=== PATIENT | female | born 1975 | race Caucasian/White ===

== ENCOUNTER 2016-11-23 21:49 | Inpatient (IN) ==
[2016-11-23] MEDS ORDERED: ONDANSETRON 4 MG/2 ML VIAL IV STA (23:22)
[2016-11-23] MEDS ORDERED: HYDROmorphone 2 MG/1 ML VIAL IV STA (23:22)
[2016-11-23] MEDS ORDERED: SODIUM CHLORIDE 0.9% 1,000 ML IV STA (23:22)
[2016-11-24] MEDS ORDERED: HYDROmorphone 2 MG/1 ML VIAL IM STA
[2016-11-24] MEDS ORDERED: PROMETHAZINE 25 MG/1 ML VIAL ONE (00:01)
[2016-11-24] MEDS ORDERED: PROMETHAZINE 25 MG/1 ML VIAL IM STA (00:01)
[2016-11-24] MEDS ORDERED: HYDROmorphone 2 MG/1 ML VIAL ONE ×2 (00:02→00:47)
--- NOTE | 2016-11-24 00:17 | Emergency Department Note ---
I, Susan Ulloa, am scribing for, and in the presence of, Kim Perez DO 23: 45. IChris Debra, DO, personally performed the services described in this documentation, ascribed by Susan Ulloa in my presence, and it is both accurate and complete . Arrival - Arrival Chief Complaint: Abdominal / Flank Pain Stated Complaint: POST OP BLEEDNIG/BACK PAIN ED Nursing Triage Note: pt presented to triage via w/ with c/o abd/back pain with n/v and vaginal bleeding. pt states had gastric sleeve 10[place]/16 [place] [facility]. pt called her surgeon and was refered to closest ER. healed abd incisions x 6 noted with no s/s of infection. denies fever Mode of Arrival: Wheelchair Limitations: No Limitations Source: Patient Time Seen by Provider: 11/23/16 23:20 - History of Present Illness HPI Narrative: Pt is a 41 y/o female that came to the ED with c/o N/V, right abdomen/back pain , and vaginal bleeding that has been going on since her gastric sleeve on October 31, 2016. Pt states she had her surgery in [place], [place] and went back Thursday November 17, 2016 for sxs where she was treated with a upper GI scope and given 2 bolus of fluid for dehydration. She reports she called her surgeon about sxs and surgeon told her to come to the closest ED. Pt states she is unable to keep an liquid or food down. Pt also reports vaginal bleeding began today and she has a foul odor when she uses the bathroom. No other complaints/ pain in ED. Onset (ago): day(s) Consistency: constant Severity: mild Severity scale (1-10): 2 Quality: aching, sharp Date of Last Menstrual Period: hyst Allergies/Adverse Reactions: Allergies Allergy/AdvReac Type Severity Reaction Status Date / Time adhesive tape Allergy RASH Verified 05/16/16 10:02 aloe Allergy RASH Verified 05/16/16 10:02 bee venom (honey bee) Allergy ANAPHYLAXIS Verified 05/16/16 10:02 cephalexin [From Keflex] Allergy Nausea Verified 05/16/16 10:02 doxycycline Allergy Nausea Verified 05/16/16 10:02 Hexachlorophene Allergy RASH Verified 05/16/16 10:02 [From Phisohex] hornet venom Allergy ANAPHYLAXIS Verified 05/16/16 10:02 Wasp Venom Allergy ANAPHYLAXIS Verified 05/16/16 10:02 Review of System - Review of System 12 point system: reviewed and no additional remarkable complaints except as stated - Review of System Respiratory: Absent: cough Cardiovascular: Absent: chest pain Gastrointestinal: Present: abdominal pain (abdominal pain at incisions), nausea , vomiting Genitourinary female: Present: other (vaginal bleeding with fowl smell) Musculoskeletal: Present: lower back pain. Absent: arm pain, leg pain, neck pain Skin: Absent: rash Neurological: Absent: headache Psychiatric: Absent: anxiety Medical,Surgical,& Family Hx - Medical History Psychological: History of: Anxiety Disorders HEENT: History of: Ear Problem Endocrine: History of: Thyroid Disorder Rheumatology: History of;: Fibromyalgia Genitourinary: History of: Kidney Stones Gastrointestinal: History of: GERD Musculoskeletal: History of: Back/Neck Problems Reproductive: History of: Endometriosis - Surgical History Abdominal Surgeries: Surgical HX of: Gastric Bypass Surgery (gastric sleeve oct 2016) Reproductive Surgeries: Surgical HX of;: Hysterectomy - Social History Smoking Status: Never smoker Frequency of Alcohol Use: None Type of Drug Use: None Exam Vital Signs: Vital Signs Temperature 97.2 F L 11/23/16 22:04 Pulse Rate 74 11/23/16 22:04 Respiratory Rate 20 11/23/16 22:04 Blood Pressure 123/76 11/23/16 22:04 O2 Sat by Pulse Oximetry 100 11/23/16 22:04 - General General appearance: alert, in no apparent distress, obese (morbidly obese) - Head Head exam: Present: atraumatic, normocephalic - Eye Eye exam: Present: PERRL, EOMI - ENT ENT exam: Present: mucous membranes moist. Absent: mucous membranes dry - Neck Neck exam: Present: full ROM. Absent: tenderness - Chest Chest inspection: Present: symmetric chest wall rise. Absent: tenderness - Respiratory Respiratory exam: Present: normal lung sounds bilaterally. Absent: respiratory distress - Cardiovascular Cardiovascular exam: Present: regular rate, normal rhythm, normal heart sounds - Abdominal Exam Abdominal exam: Present: soft, tenderness (surgery sights tender but no infection and healing) - Extremities Exam Extremities exam: Present: full ROM. Absent: tenderness, pedal edema - Back Exam Back exam: Present: full ROM, tenderness (right flank tenderness) - Neurological Exam Neurological exam: Present: alert, oriented X3, CN II-XII intact. Absent: motor sensory deficit - Psychiatric Psychiatric exam: Present: normal affect, normal mood - Skin Skin exam: Present: warm, dry Course Course Narrative: spoke with Dr Collins who will admit pt to dr Bird Results - Labs CBC & BMP: 11/23/16 23:48 11/23/16 23:48 Lab Results: I have reviewed the patients labs Labs: Laboratory Tests 11/24/16 00:05 Urine Urobilinogen < 2.0 H Laboratory Tests 11/23/16 23:48 MCV 83.7 L Neut % (Auto) 36.5 L Laboratory Tests 11/23/16 23:48 Sodium 147 H Chloride 112 H AST 79 H ALT 140 H Disposition Clinical Impression: Abdominal pain, Ileus Case discussed with: patient, patient's family Condition: Stable Time of Disposition: 02:07
[2016-11-24 00:27] LABS: Apearance,Urine CLOUDY (Clear); Bilirubin,Urine Negative (Negative); Blood, Urine Large mg/dL (Negative); Glucose,Urine (UA) Negative (Negative); Ketones,Urine Negative (Negative); Mucus,Urine Many /LPF (Occasional); Nitrite,Urine Negative (Negative); Protein,Urine 100 MG/DL; RBC,Urine 3933 /HPF (0-4); Squamous Epithelial Cell,Urine Occasional /HPF (0-10); Urine Color Amber (Yellow); Urine Specific Gravity 1.023 (1.001-1.035); Urine Urobilinogen < 2.0 EU/DL (0.2-1.0); WBC,Urine 18 /HPF (0-6)
[2016-11-24] MEDS ORDERED: ONDANSETRON 4 MG/2 ML VIAL ONE (00:46)
[2016-11-24 00:52] LABS: Basophils # 0.1 10*3/uL (0.0-0.2); Basophils % 0.7 % (0.0-0.8); Eosinophils # 0.4 10*3/uL (0.0-0.87); Hematocrit 37.5 VOL% (35.7-47.0); Hemoglobin 12.6 GM/DL (12.0-16.0); Immature Granulocytes % 0.1 %; Immature Granulocytes Absolute 0.01 #; Lymphocytes # 3.4 10*3/uL (1.4-4.0); Lymphocytes % 49.6 % (21.3-54.2); Mean Corpuscular HGB Conc 33.6 GM/DL (32-36); Mean Corpuscular Hemoglobin 28 PG (27-34); Mean Corpuscular Volume 83.7 FL (87-102); Mean Platelet Volume 11.7 FL (9.6-12.0); Monocytes # 0.5 10*3/uL (0.11-0.8); Monocytes % 7.1 % (1.7-12.7); Neutrophils # 2.5 10*3/uL (1.4-7.4); Neutrophils % 36.5 % (38.7-73.9); Platelet Count 162 10*3/uL (130-400); Red Blood Count 4.48 10*6/uL (3.8-5.5); Red Cell Distribution Width 13.2 % (9.3-17.3); White Blood Count 6.9 10*3/uL (4.5-13.71)
[2016-11-24 01:27] LABS: Albumin 3.7 G/DL (3.4-5.0); Bilirubin,Total 0.4 MG/DL (0.2-1.0); Calcium 8.7 MG/DL (8.5-10.1); Osmolality,Calculated 288.4 MOS/KG (273-304); Potassium 3.8 MMOL/L (3.5-5.1); Total Protein 6.6 G/DL (6.4-8.3)
[2016-11-24] MEDS ORDERED: diphenhydrAMINE 50 MG/1 ML VIAL IV STA (02:01)
[2016-11-24] MEDS ORDERED: diphenhydrAMINE 50 MG/1 ML VIAL ONE (02:01)
[2016-11-24] MEDS ORDERED: ACETAMINOPHEN 325 MG TABLET PO PRN (02:07)
--- NOTE | 2016-11-24 02:28 | Hospitalist History & Physical ---
Assessment and Plan (1) Hemorrhagic cystitis Status: Acute Current Visit: Yes (2) Abdominal pain Status: Acute Current Visit: Yes (3) Ileus Status: Acute Assessment and plan: Plan for this patient #1 Admit this patient our service #2 treat her nausea and vomiting #3 continue home meds as appropriate #4 IV hydration #5 repeat labs in the morning #6 check KUB in the morning #7 antibiotics Current Visit: Yes History of Present Illness Chief complaint: abdominal pain nausea and vomiting blood and urine History of present illness: Ms. Viera is a 41 year old female with past medical history significant for chronic pain fibromyalgia bursitis polyarthritis who reports having gastric sleeve surgery last month. Patient says ever since she's had the surgery she gets nauseated with sips of water. She went to see her surgeon about a week ago when she was dehydrated. Says she has some, swallowing evaluation when she did the procedure she had stomach spasms. She said that she was put on Reglan and Carafate and Nexium. Started noticing she is passing blood in her urine today she came up to our hospital for further evaluation. Allergies Allergy/AdvReac Type Severity Reaction Status Date / Time adhesive tape Allergy RASH Verified 05/16/16 10:02 aloe Allergy RASH Verified 05/16/16 10:02 bee venom (honey bee) Allergy ANAPHYLAXIS Verified 05/16/16 10:02 cephalexin [From Keflex] Allergy Nausea Verified 05/16/16 10:02 doxycycline Allergy Nausea Verified 05/16/16 10:02 Hexachlorophene Allergy RASH Verified 05/16/16 10:02 [From Phisohex] hornet venom Allergy ANAPHYLAXIS Verified 05/16/16 10:02 Wasp Venom Allergy ANAPHYLAXIS Verified 05/16/16 10:02 Medical,Surgical,& Family Hx - Medical History Psychological: History of: Anxiety Disorders HEENT: History of: Ear Problem Endocrine: History of: Thyroid Disorder Rheumatology: History of;: Fibromyalgia Genitourinary: History of: Kidney Stones Gastrointestinal: History of: GERD Musculoskeletal: History of: Back/Neck Problems Reproductive: History of: Endometriosis - Surgical History Abdominal Surgeries: Surgical HX of: Gastric Bypass Surgery (gastric sleeve oct 2016) Reproductive Surgeries: Surgical HX of;: Hysterectomy - Family History Family History: Reports;: Family Cancer, Family Diabetes Additional Family History: Endometriosis, thyroid disorders - Social History Smoking Status: Never smoker Frequency of Alcohol Use: None Type of Drug Use: None 12 point system: reviewed and no additional remarkable complaints except as stated Exam - Constitutional Vitals: Period Temp Pulse Resp BP Sys/Plaza Pulse Ox Last 24 Hr 97.2 F 74 20 123/76 100 - General General appearance: alert, in no apparent distress, obese (morbidly obese) - Head Head exam: Present: atraumatic, normocephalic - Eye Eye exam: Present: PERRL, EOMI - ENT ENT exam: Present: mucous membranes moist. Absent: mucous membranes dry - Neck Neck exam: Present: full ROM. Absent: tenderness - Chest Chest inspection: Present: symmetric chest wall rise. Absent: tenderness - Respiratory Respiratory exam: Present: normal lung sounds bilaterally. Absent: respiratory distress - Cardiovascular Cardiovascular exam: Present: regular rate, normal rhythm, normal heart sounds - Abdominal Exam Abdominal exam: Present: soft, tenderness (surgery sights tender but no infection and healing) - Extremities Exam Extremities exam: Present: full ROM. Absent: tenderness, pedal edema - Back Exam Back exam: Present: full ROM, tenderness (right flank tenderness) - Neurological Exam Neurological exam: Present: alert, oriented X3, CN II-XII intact. Absent: motor sensory deficit - Psychiatric Psychiatric exam: Present: normal affect, normal mood - Skin Skin exam: Present: warm, dry Results - Labs CBC & BMP: 11/23/16 23:48 11/23/16 23:48
[2016-11-24] MEDS ORDERED: SODIUM CHLORIDE 0.9% 1,000 ML IV SCH (02:30)
[2016-11-24] MEDS: SODIUM CHLORIDE 0.45% 1,000 ML IV SCH ×3 (03:43→20:59)
[2016-11-24] MEDS: LEVOFLOXACIN INJ 500 MG in PREMIX 1 EACH IV SCH (03:44)
[2016-11-24] MEDS: diphenhydrAMINE 50 MG/1 ML VIAL IV PRN ×3 (04:47→20:54)
[2016-11-24] MEDS: HYDROmorphone 2 MG/1 ML VIAL IV PRN ×4 (04:48→18:29)
--- NOTE | 2016-11-24 06:32 | CT Report ---
CT abdomen pelvis wo con Indication: Abdominal pain. CT ABDOMEN AND PELVIS WITHOUT CONTRAST DLP: 1380 mGy*cm Comparison: None. Technique: Axial noncontrast CT images of the abdomen and pelvis were obtained. Abdomen: Obesity noted. Normal heart size. Bibasilar atelectasis. Postoperative changes prior gastric surgery noted. Cholecystectomy clips. Unenhanced liver, spleen, adrenal glands and kidneys are unremarkable. There is, however, a nonobstructing 4 x 7 mm calculus in the right renal pelvis. No calculi of either ureter present and no hydronephrosis. Small amount of fat stranding appears to be present around the pancreas. Unenhanced pancreas is otherwise unremarkable. No bowel obstruction. Pelvis: Appendix not identified. No right lower quadrant inflammation. Urinary bladder is completely decompressed. Uterus is absent. Rectosigmoid colon is within normal limits. No free fluid, free air or lymphadenopathy. No destructive bone lesions. Impression: 1. Nonobstructing right kidney stone in the renal pelvis. 2. Previous gastric surgery. Cholecystectomy. Presumed hysterectomy. 3. Trace amount of nonspecific fat stranding adjacent to the pancreas may be related to pancreatitis. Clinical correlation necessary. PROCEDURE INTERPRETED AT [facility] DEPARTMENT OF RADIOLOGY Final Report Signed by: Napoleon Araiza M.D.
--- NOTE | 2016-11-24 07:36 | XRay Report ---
XR abdomen 2V Indication: Abdominal pain. Abdomen 3 views: Right upper quadrant surgical clips, surgical clips in the epigastric region and a right groin central line are present. Small bowel is unremarkable and a normal amount of stool and gas is shown the colon. No evidence of free air. Impression: Unremarkable bowel gas pattern. PROCEDURE INTERPRETED AT [facility] DEPARTMENT OF RADIOLOGY Final Report Signed by: Napoleon Araiza M.D.
[2016-11-24] MEDS: ONDANSETRON 4 MG/2 ML VIAL IV PRN ×3 (08:07→18:30)
[2016-11-24] MEDS: PANTOPRAZOLE 40 MG TABLET PO SCH ×3 (08:08→18:34)
[2016-11-24] MEDS: DOCUSATE SODIUM 100 MG CAPSULE PO SCH ×2 (08:09→08:12)
[2016-11-24 10:27] LABS: Basophils % 0.4 % (0.0-0.8); Eosinophils # 0.2 10*3/uL (0.0-0.87); Eosinophils % 4.1 % (0.00-10.9); Hematocrit 36.2 VOL% (35.7-47.0); Hemoglobin 11.8 GM/DL (12.0-16.0); Immature Granulocytes % 0.2 %; Immature Granulocytes Absolute 0.01 #; Lymphocytes # 1.5 10*3/uL (1.4-4.0); Lymphocytes % 27.9 % (21.3-54.2); Mean Corpuscular HGB Conc 32.6 GM/DL (32-36); Mean Corpuscular Hemoglobin 28 PG (27-34); Mean Platelet Volume 11.4 FL (9.6-12.0); Monocytes # 0.4 10*3/uL (0.11-0.8); Monocytes % 7.7 % (1.7-12.7); Neutrophils # 3.2 10*3/uL (1.4-7.4); Neutrophils % 59.7 % (38.7-73.9); Platelet Count 140 10*3/uL (130-400); Red Blood Count 4.26 10*6/uL (3.8-5.5); Red Cell Distribution Width 13.5 % (9.3-17.3); White Blood Count 5.4 10*3/uL (4.5-13.71)
[2016-11-24 10:59] LABS: Calcium 8.5 MG/DL (8.5-10.1); Osmolality,Calculated 289.4 MOS/KG (273-304); Potassium 3.7 MMOL/L (3.5-5.1)
[2016-11-25] MEDS: DOCUSATE SODIUM 100 MG CAPSULE PO SCH ×2 (02:36→09:32)
[2016-11-25] MEDS: HYDROmorphone 2 MG/1 ML VIAL IV PRN ×3 (03:25→13:27)
[2016-11-25] MEDS: ONDANSETRON 4 MG/2 ML VIAL IV PRN ×4 (03:26→18:20)
[2016-11-25] MEDS: SODIUM CHLORIDE 0.45% 1,000 ML IV SCH ×2 (04:22→16:26)
[2016-11-25] MEDS: diphenhydrAMINE 50 MG/1 ML VIAL IV PRN ×2 (05:58→16:23)
[2016-11-25 06:19] LABS: Basophils % 0.7 % (0.0-0.8); Eosinophils # 0.4 10*3/uL (0.0-0.87); Hematocrit 35.3 VOL% (35.7-47.0); Hemoglobin 11.4 GM/DL (12.0-16.0); Immature Granulocytes % 0.2 %; Immature Granulocytes Absolute 0.01 #; Lymphocytes # 2.7 10*3/uL (1.4-4.0); Lymphocytes % 48.8 % (21.3-54.2); Mean Corpuscular HGB Conc 32.3 GM/DL (32-36); Mean Corpuscular Hemoglobin 28 PG (27-34); Mean Corpuscular Volume 86.7 FL (87-102); Mean Platelet Volume 11.8 FL (9.6-12.0); Monocytes # 0.4 10*3/uL (0.11-0.8); Monocytes % 6.9 % (1.7-12.7); Neutrophils # 1.9 10*3/uL (1.4-7.4); Neutrophils % 35.4 % (38.7-73.9); Platelet Count 138 10*3/uL (130-400); Red Blood Count 4.07 10*6/uL (3.8-5.5); Red Cell Distribution Width 13.5 % (9.3-17.3); White Blood Count 5.5 10*3/uL (4.5-13.71)
[2016-11-25 06:46] LABS: Eosinophils 10 % (0-10); Hypochromasia Slight; Lymphocytes 37 % (20-55); Ovalocytes Slight; Platelet Estimate Normal; Segmented Neutrophils 48 % (50-85); Total Cells Counted 100
[2016-11-25 06:55] LABS: Calcium 8.6 MG/DL (8.5-10.1); Osmolality,Calculated 285.6 MOS/KG (273-304); Potassium 3.7 MMOL/L (3.5-5.1)
[2016-11-25] MEDS: LEVOFLOXACIN INJ 500 MG in PREMIX 1 EACH IV SCH (09:09)
[2016-11-25] MEDS: PANTOPRAZOLE 40 MG TABLET PO SCH (09:10)
--- NOTE | 2016-11-25 10:33 | Hospitalist Progress Note ---
Assessment and Plan (1) Nausea & vomiting Status: Acute Assessment and plan: cont zofran PRN pt with poor oral intake will consult GI for assistance Current Visit: Yes (2) Abdominal pain Status: Acute Assessment and plan: abd pain, mostly in epigastrum, CT abd- fat stranding around pancreas, will check amylase, lipase, consult GI Current Visit: Yes (3) Ileus Status: Acute Assessment and plan: BS hypoactive, coppola not passing gas , pt had loose BM yesterday , cont Levaquin IV Current Visit: Yes (4) Hemorrhagic cystitis Status: Acute Assessment and plan: resolved, will repeat UA, HH stable, if cont to have hematuria will consult urology Current Visit: Yes Hospitalist: Subjective Interval history: 41 yo WF s/p gastric surgery on 10/31/16 in [facility] to ER c/o nausea, vomiting and and scamps since surgery. She was seeing by her surgeon 1 week ago and had upper GI that revealed esophageal and gastric spasms according to the pt. She was prescribed reglan, nexium and carafate. He symptoms did not improve so she presented to ER. C/o fever and chills also. She was admitted with dehydration and ileus and started on levoquin IV. CT abd - nonspecific fat stranding attached to the pancreas. Exam - Constitutional Vitals: Period Temp Pulse Resp BP Sys/Plaza Pulse Ox Last 24 Hr 96.4 F-98.4 F 54-75 18-20 101-112/49-81 90-97 General appearance: no acute distress, morbidly obese - Head Head exam: Present: normocephalic, atraumatic - Eye Eye exam: Present: EOMI Pupils: Present: ALONZO - Neck Neck exam: Present: normal inspection - Respiratory Respiratory exam: Present: clear to auscultation bilaterally - Cardiovascular Cardiovascular exam: Present: regular rate and rhythm - GI/Abdominal GI/Abdominal exam: Present: distended, hypoactive bowel sounds, other (tender in epigastrium on palpation ) - Extremities Exam Extremities exam: Present: normal inspection - Neurological Exam Neurological exam: Present: alert, oriented X3 - Psychiatric Psychiatric exam: Present: anxious - Skin Skin exam: Present: normal color, warm Results - Labs CBC & BMP: 11/25/16 05:40 11/25/16 05:40 Quality Measures - Stroke Symptom Onset Unknown: No
[2016-11-25 14:55] LABS: Apearance,Urine CLEAR (Clear); Bacteria,Urine Occasional /HPF (Few); Bilirubin,Urine Negative (Negative); Blood, Urine Moderate mg/dL (Negative); Glucose,Urine (UA) Negative (Negative); Ketones,Urine Negative (Negative); Mucus,Urine Occasional /LPF (Occasional); Nitrite,Urine Negative (Negative); Protein,Urine Negative; RBC,Urine 7 /HPF (0-4); Squamous Epithelial Cell,Urine Occasional /HPF (0-10); Urine Color Straw (Yellow); Urine Specific Gravity 1.005 (1.001-1.035); Urine Urobilinogen < 2.0 EU/DL (0.2-1.0); WBC,Urine <1 /HPF (0-6)
[2016-11-25] MEDS ORDERED: ACETAMINOPHEN 650 MG SUPP RECTAL PRN (16:30)
[2016-11-25] MEDS ORDERED: LORazepam 2 MG/1 ML VIAL IV PRN (16:36)
[2016-11-25] MEDS ORDERED: PROMETHAZINE INJ 25 MG in SODIUM CHLORIDE 0.9% 50 ML IV PRN (16:39)
--- NOTE | 2016-11-25 16:48 | Gastrointestinal Consult Note ---
Assessment and Plan (1) GI complications of surgery Status: Acute Assessment and plan: I suspect someone strongly that this patient has a esophageal stricture or pill esophagitis that is making her nauseated to the point where she is throwing up basically anything thicker than clear liquids. This is interesting as she has been on Protonix 40 mg twice daily since she was discharged from the hospital. She may in fact be vomiting up the medication and therefore unable to utilize it. We will switch her over to IV Protonix and see if this works better for her in addition to using IV promotility agents to help move the acid stomach quicker. She will need to be off of narcotics in order to give her bowels the best chance at recovery. Agree with aggressive hydration and coverage for her underlying hemorrhagic cystitis. If a stricturing focus can be found during endoscopy tomorrow we'll likely use balloon dilation to help open this area. She is 3 weeks post surgery and should be able to tolerate gentle dilation. Risks and benefits of the above procedure were described to the patient and her together these include but are not limited to: Bleeding, infection, perforation, cardiac and pulmonary compromise as well as potential peritonitis. Current Visit: Yes (2) Abnormal computed tomography of gastrointestinal tract Status: Acute Assessment and plan: Patient has fat stranding around the pancreas with an amylase and lipase of 36 and 251 both of which are within normal limits. I don't suspect that this is a pancreatitis issue more likely an obstructive issue caused by stricturing or severe esophagitis with nausea and vomiting. I have started the patient on IV Reglan as well as IV Protonix to ensure that she will be getting these medications, instead of throwing them up. Further recommendations post upper endoscopy tomorrow. Current Visit: Yes (3) Nausea & vomiting Status: Acute Assessment and plan: See above. The patient is written for an Reglan which should be her main motility agent as well as Zofran and Phenergan if she needs it. Bear in mind there is a potential interaction between Phenergan and Reglan, and so this combination should be used last, to avoid serotonin syndrome and other interactions. Aggressive hydration should help replete her electrolytes and will be checking these during her hospitalization. Her BUN/creatinine actually looks fairly good considering the vomiting she is describing. Current Visit: Yes History of Present Illness Chief complaint: nausea and vomiting status post gastric sleeve procedure History of present illness: Ms. Viera is a 41 year old female who has a history of obesity and fibromyalgia who had been working and has most of her medical care performed out of [facility]. He does live locally however and had undergone a gastric sleeve procedure in [place] on 10/31/16. She had difficulty transitioning off of clears with recurrent nausea and vomiting when trying to eat anything solid and continued to have ongoing nausea and vomiting proximally 8 days ago she called her surgeon who prescribed Nexium twice daily instead of the Protonix twice a day that she been taking up to that point in addition also ordered her some Reglan 5 mg every 6 hours in addition to Carafate liquid 10 mL presumably 1 g 4 times a day. Especially this did not improve the patient's situation she continued having nausea and vomiting. An attempt was made to perform upper GI series but this failed due to the patient's vomiting of all the contrast. She feels like things get stuck about senior care down her sternum. She was becoming progressively more dehydrated and her surgeon advised her to seek care at the local emergency room. CT scanning demonstrated what appeared to be some fat stranding around the patient's pancreas but pancreatic enzymes were normal. No ileus was seen. The patient's cares further complicated by hemorrhagic cystitis. Her hematocrit is relatively normal 37.5 with a white blood cell count 6.9 and a BUN and creatinine of 8 and 0.8. She has not had a bowel movement in several days. She was previously having watery diarrhea but admits to taking nothing but clears for a number of days prior to the diarrhea. She has not vomited any blood, she has not had any blood in her bowel movements but as mentioned is having some hemorrhagic cystitis symptoms. Our plan is to explore endoscopically tomorrow and see if she requires a stricture dilation and make sure there is not a food bolus impaction. Home Medications Medication Instructions Recorded Confirmed Type Cyanocobalamin (Vitamin B-12) 1 each NS Q7DAY 11/24/16 11/24/16 History [Nascobal] Escitalopram [Lexapro] 10 mg PO DAILY 11/24/16 11/24/16 History Esomeprazole Magnesium [Nexium] 40 mg PO BID 11/24/16 11/24/16 History Levothyroxine Tab [Synthroid Tab] 75 mcg PO DAILY 11/24/16 11/24/16 History Metoclopramide Liquid [Reglan 5 mg PO [facility] 11/24/16 11/24/16 History Liquid] Morphine ER Tab [Ms Contin] 15 mg PO BEDTIME 11/24/16 11/24/16 History Oxycodone HCl/Acetaminophen 1 each PO BEDTIME 11/24/16 11/24/16 History [Percocet 10-325 mg Tablet] Sucralfate Liquid [Carafate Liquid] 1 gm PO [facility] 11/24/16 11/24/16 History Allergies Allergy/AdvReac Type Severity Reaction Status Date / Time adhesive tape Allergy RASH Verified 05/16/16 10:02 aloe Allergy RASH Verified 05/16/16 10:02 bee venom (honey bee) Allergy ANAPHYLAXIS Verified 05/16/16 10:02 cephalexin [From Keflex] Allergy Nausea Verified 05/16/16 10:02 doxycycline Allergy Nausea Verified 05/16/16 10:02 Hexachlorophene Allergy RASH Verified 05/16/16 10:02 [From Phisohex] hornet venom Allergy ANAPHYLAXIS Verified 05/16/16 10:02 Wasp Venom Allergy ANAPHYLAXIS Verified 05/16/16 10:02 Medical,Surgical,& Family Hx - Medical History Psychological: History of: Anxiety Disorders HEENT: History of: Ear Problem (tubes), HEENT Problems (sinus surgery) Endocrine: History of: Thyroid Disorder Rheumatology: History of;: Fibromyalgia Respiratory: History of: Asthma (last attack 11 years ago) Genitourinary: History of: Kidney Stones Gastrointestinal: History of: GERD Musculoskeletal: History of: Back/Neck Problems Hematology: No history of: Blood Transfusion Reaction Reproductive: History of: Endometriosis - Surgical History Thoracic Surgeries: Patient denies;: Organ Transplant HEENT Surgeries: Surgical HX of: Eye Surgery (lasik on eyes), Tonsilectomy & Adenoidectomy Abdominal Surgeries: Surgical HX of: Appendectomy, Cholecystectomy, Gastric Bypass Surgery (gastric sleeve oct 2016) Reproductive Surgeries: Surgical HX of;: Section, Hysterectomy Orthopedic Surgeries: Surgical HX of;: Total Knee Replacement (scope both knees wrist surgery) - Family History Family History: Reports;: Family Cancer (grandmother), Family Diabetes, Family Heart Disease, Family Hypertension (parents grandparents) - Social History Smoking Status: Never smoker Frequency of Alcohol Use: Rarely Type of Drug Use: None Review of systems: Constitutional: Denies fever, chills, but positive for copious nausea, and vomiting Eyes: Denies dry eyes, and scleral icterus HENT: The patient does admit to some headaches Cardiovascular: Denies acute chest pain and claudication Respiratory: Denies shortness of breath, wheezing, and difficulty breathing, denies cough Gastrointestinal: As noted in the HPI Genitourinary: She has had some dysuria and hematuria Neurologic: Denies vision loss, and loss of sensation Musculoskeletal: She does complain of minimal joint swelling, joint stiffness , and muscular weakness Psychiatric: Denies depression and mirza symptoms Heme-Lymph: Denies easy bruising, lymph node enlargement or tenderness, night sweats, excessive bleeding Allergies-immunologic: Denies pruritus and rhinorrhea Exam - Constitutional Vitals: Period Temp Pulse Resp BP Sys/Plaza Pulse Ox Last 24 Hr 96.4 F-98.6 F 54-63 18-20 104-112/54-65 90-99 Exam: Constitutional: Well-developed, well-nourished, obese white female alert, and in no acute distress Head and face: Head: Normocephalic atraumatic Eyes: Conjunctiva without injection, no gross scleral icterus, pupils equal and round bilaterally Ears: Intact to conversation in both ears Nose: External appearance is normal, nares patent Mouth: Oral mucous membranes moist, dentition noted to be without erosion, there is some mild erythema in the back of her throat Neck: Normal appearance, no masses or tenderness, trachea midline Thyroid: Gland midline and appropriate size for age Respiratory: Normal respiratory effort, clear to auscultation without wheezes, rhonchi or rales Cardiovascular: Regular rate and rhythm, normal S1, S2, the exam is without rubs, or gallops. She does have a mild systolic ejection murmur heard best at the left lower sternal border. Gastrointestinal: Nontender to palpation, normal active bowel sounds, tone normal without rigidity or guarding, no masses present, no hepatomegaly, no spleen tip felt. Rectal exam demonstrated liquid brown stool which is guaiac- negative. Small internal and external hemorrhoids were noted. Lymphatic: Neck without adenopathy, axilla without lymphadenopathy present Musculoskeletal: Right and left lower extremities without evidence of edema Skin and subcutaneous tissue: No rashes or ulcerations noted, normal skin turgor, digits and nails without clubbing/cyanosis/deformities. This patient has multiple tattoos. Neurologic: The patient is grossly oriented to person place and time, cranial nerves show tongue movements are normal with normal tongue extrusion midline, light touch sensation is intact. Psychiatric: No hallucinations or delusions are present, does not appear depressed Results - Labs CBC & BMP: 11/25/16 05:40 11/25/16 05:40 Quality Measures - Stroke Symptom Onset Unknown: No
[2016-11-25] MEDS: METOCLOPRAMIDE 10 MG/2 ML VIAL IV SCH (18:19)
[2016-11-25] MEDS: PANTOPRAZOLE 40 MG VIAL IV SCH (20:50)
[2016-11-26] MEDS: METOCLOPRAMIDE 10 MG/2 ML VIAL IV SCH ×4 (02:55→17:20)
[2016-11-26] MEDS: ONDANSETRON 4 MG/2 ML VIAL IV PRN ×2 (04:19→08:55)
[2016-11-26 06:57] LABS: Basophils # 0.1 10*3/uL (0.0-0.2); Basophils % 0.9 % (0.0-0.8); Eosinophils # 0.5 10*3/uL (0.0-0.87); Eosinophils % 8.9 % (0.00-10.9); Hematocrit 36.2 VOL% (35.7-47.0); Hemoglobin 11.9 GM/DL (12.0-16.0); Immature Granulocytes % 0.3 %; Immature Granulocytes Absolute 0.02 #; Lymphocytes # 2.4 10*3/uL (1.4-4.0); Lymphocytes % 41.1 % (21.3-54.2); Mean Corpuscular HGB Conc 32.9 GM/DL (32-36); Mean Corpuscular Hemoglobin 29 PG (27-34); Mean Corpuscular Volume 87.4 FL (87-102); Mean Platelet Volume 12.1 FL (9.6-12.0); Monocytes # 0.4 10*3/uL (0.11-0.8); Monocytes % 7.1 % (1.7-12.7); Neutrophils # 2.4 10*3/uL (1.4-7.4); Neutrophils % 41.7 % (38.7-73.9); Platelet Count 120 10*3/uL (130-400); Red Blood Count 4.14 10*6/uL (3.8-5.5); Red Cell Distribution Width 13.2 % (9.3-17.3); White Blood Count 5.7 10*3/uL (4.5-13.71)
[2016-11-26] MEDS: SODIUM CHLORIDE 0.45% 1,000 ML IV SCH ×2 (07:00→17:19)
[2016-11-26 07:32] LABS: Calcium 8.5 MG/DL (8.5-10.1); Osmolality,Calculated 291.1 MOS/KG (273-304); Potassium 3.7 MMOL/L (3.5-5.1)
[2016-11-26] MEDS ORDERED: LIDOCAINE 2% 5 ML VIAL ONE (08:24)
[2016-11-26] MEDS ORDERED: PROPOFOL 200 MG/20 ML VIAL IV ONE (08:24)
--- NOTE | 2016-11-26 08:49 | Anesthesia ---
Anesthesia Post OP - Post Ansesthetic Evaluation Patient seen in post op: Yes Resp: within normal limits CV: within normal limits Mental: within normal limits Temp: within normal limits Lzex-Mg-Nrdfdjvch: within normal limits Nausea and Vomiting: within normal limits Pain: within normal limits
--- NOTE | 2016-11-26 08:51 | Operative Note ---
Date of procedure: 11/26/16 Pre-op diagnosis: dysphagia status post gastric sleeve procedure Post-op diagnosis: other (Mild narrowing inside the gastric sleeve portion of the stomach status post dilation to 54 Citizen Of [place]/18 mm by CRE dilator without evidence of disruption of some bleeding noted, we will see if this helps with the patient's full liquid tolerance. Linear gastritis noted and some LA class B erosive esophagitis seen) Procedure: PROCEDURE: Esophagogastroduodenoscopy (EGD) with cold biopsy for pathology and dilation by continuous radial expansion (CRE) balloon to 18 mm/54 FR. REFERRING PHYSICIAN: Dr. Thao Bennett M.D. INDICATIONS: This is a patient who had previous gastric sleeve surgery performed 10/31/16 who is had nausea and vomiting since the procedure despite use of Protonix 40 mg twice daily. Currently getting IV Reglan and IV Protonix with mild improvement here to examine for early stricturing. The prior H&P was reviewed and interrim changes are as noted: No change in GI consultation yesterday ENDOSCOPIST: Carlos Costa MD ENDOSCOPE: Olympus Video 100 System upper endoscope ASA CLASS: 3 EXAM: CV: regular rate and rhythm Respiratory: Clear without wheezes Abdominal: active bowel sounds MEDICATION: Per nursing anesthesia protocol, see their notes PROCEDURE: After discussion of the potential risks and benefits of upper endoscopy, the informed consent was obtained. The patient was then placed in the left lateral decubitus position where sedation was achieved as noted above. Esophageal intubation was performed without difficulty, and the endoscope was advanced through the esophagus, stomach and duodenum. A slow withdrawal was then performed with retroflexion in the stomach for careful inspection of the incisura angularis, fundus and cardia. The scope was then returned to a neutral position and withdrawn through the esophagus. The patient tolerated the procedure well and without complication. BIOPSIES: Gastric antrum/body PHOTOGRAPHS: Obtained FINDINGS: Hypopharynx and Larynx: Normal Esohagoscopy Upper and middle thirds: Normal, Lower third mild LA class B esophagitis in the distal esophagus for 2 cm Esophogastric junctions: Mild LA class B esophagitis in the distal 2 cm , no gross evidence of stricturing here Gastroscopy: Cardia/Fundus: Slight dilation above the initiation of the gastric sleeve in the cardia and proximal fundus, 2 cm hiatal hernia noted here as well Body: Narrowed in association with the recent gastric sleeve procedure. There was a narrowing that allowed passage of the scope here that we felt it would benefit from dilation and CRE balloon dilator was used to 18 mm /54 Citizen [place] with some blood post-dilation noted here but no gross evidence of mucosal tearing or disruption Antrum and pylorus linear gastritis noted which was biopsied for Helicobacter pylori Duodenoscopy: Bulb normal Second and third portions: Normal IMPRESSION: Mild narrowing inside the gastric sleeve portion of the stomach status post dilation to 54 Citizen [place]/18 mm by CRE dilator without evidence of disruption of some bleeding noted, we will see if this helps with the patient's full liquid tolerance. Linear gastritis noted and some LA class B erosive esophagitis seen RECOMMENDATIONS: Follow up for biopsy results in 1-2 weeks by phone [phone] Continue anti-gastroesophageal reflux measures (avoid carbonated and acidic beverages, avoid eating within 2 hours of bedtime, avoid tight fitting clothing , and elevate the front bed posts 6 inches prior to sleeping. We will see if the patient is able tolerate a full liquid diet today post- dilation CBC tomorrow to monitor her condition/white count and for anemia. Until we can see the patient is tolerating by mouth well we will continue IV Reglan and Protonix. Carlos Costa MD COPY TO: Shiv Bird M.D. Anesthesia: MAC Surgeon / Physician: Carlos Costa Estimated blood loss: minimal Specimens: other (gastric antrum/body) Condition: stable Disposition: post procedure unit (G.I. Suite) Results - Labs CBC & BMP: 11/26/16 05:56 11/26/16 06:00 Discharge Plan - Discharge Medications No Action Morphine ER Tab [Ms Contin] 15 mg PO BEDTIME Esomeprazole Magnesium [Nexium] 40 mg PO BID Sucralfate Liquid [Carafate Liquid] 1 gm PO ACHS Levothyroxine Tab [Synthroid Tab] 75 mcg PO DAILY Escitalopram [Lexapro] 10 mg PO DAILY Cyanocobalamin (Vitamin B-12) [Nascobal] 1 each NS Q7DAY Oxycodone HCl/Acetaminophen [Percocet 10-325 mg Tablet] 1 each PO BEDTIME Metoclopramide Liquid [Reglan Liquid] 5 mg PO ACHS - Follow Up or Referral - Forms/Instructions
--- NOTE | 2016-11-26 08:57 | Gastrointestinal Progress Note ---
Assessment and Plan (1) GI complications of surgery Status: Acute Assessment and plan: I suspect someone strongly that this patient has a esophageal stricture or pill esophagitis that is making her nauseated to the point where she is throwing up basically anything thicker than clear liquids. This is interesting as she has been on Protonix 40 mg twice daily since she was discharged from the hospital. She may in fact be vomiting up the medication and therefore unable to utilize it. We will switch her over to IV Protonix and see if this works better for her in addition to using IV promotility agents to help move the acid stomach quicker. She will need to be off of narcotics in order to give her bowels the best chance at recovery. Agree with aggressive hydration and coverage for her underlying hemorrhagic cystitis. If a stricturing focus can be found during endoscopy tomorrow we'll likely use balloon dilation to help open this area. She is 3 weeks post surgery and should be able to tolerate gentle dilation. Risks and benefits of the above procedure were described to the patient and her together these include but are not limited to: Bleeding, infection, perforation, cardiac and pulmonary compromise as well as potential peritonitis. 11/26/16-- the patient did well with upper endoscopy and dilation, findings were as follows: Mild narrowing inside the gastric sleeve portion of the stomach status post dilation to 54 [place]/18 mm by CRE dilator without evidence of disruption of some bleeding noted, we will see if this helps with the patient's full liquid tolerance. Linear gastritis noted and some LA class B erosive esophagitis seen, small hiatal hernia was also seen. He had some linear gastritis which was also biopsied. If she does adequately today with the full liquid intake we might consider advancing her diet tomorrow. Current Visit: Yes (2) Abnormal computed tomography of gastrointestinal tract Status: Acute Assessment and plan: Patient has fat stranding around the pancreas with an amylase and lipase of 36 and 251 both of which are within normal limits. I don't suspect that this is a pancreatitis issue more likely an obstructive issue caused by stricturing or severe esophagitis with nausea and vomiting. I have started the patient on IV Reglan as well as IV Protonix to ensure that she will be getting these medications, instead of throwing them up. Further recommendations post upper endoscopy tomorrow. 11/26/16-- observation, if the patient's symptoms are better we will not recheck these lab results. Current Visit: Yes (3) Nausea & vomiting Status: Acute Assessment and plan: See above. The patient is written for an Reglan which should be her main motility agent as well as Zofran and Phenergan if she needs it. Bear in mind there is a potential interaction between Phenergan and Reglan, and so this combination should be used last, to avoid serotonin syndrome and other interactions. Aggressive hydration should help replete her electrolytes and will be checking these during her hospitalization. Her BUN/creatinine actually looks fairly good considering the vomiting she is describing. 11/26/16--observation post dilation with advance in diet to a full liquid diet. Current Visit: Yes Gastroenterology - PN: Subj Interval history: Patient feels marginally better than she did yesterday. Exam (Progress Note) - Constitutional Vitals: Period Temp Pulse Resp BP Sys/Plaza Pulse Ox Last 24 Hr 97.8 F-98.6 F 18-84 18-20 94-111/45-65 96-99 General appearance: mild distress - Head Head exam: Present: normocephalic - Eye Eye exam: Present: EOMI - Respiratory Respiratory exam: Present: clear to auscultation bilaterally - Cardiovascular Cardiovascular exam: Present: regular rate and rhythm - GI/Abdominal GI/Abdominal exam: Present: normal bowel sounds, tenderness, soft. Absent: distended, guarding - Neurological Exam Neurological exam: Present: alert, oriented X3, CN II-XII intact. Absent: motor sensory deficit - Psychiatric Psychiatric exam: Present: normal affect, normal mood - Skin Skin exam: Present: warm Results - Labs CBC & BMP: 11/26/16 05:56 11/26/16 06:00
[2016-11-26] MEDS ORDERED: ONDANSETRON 4 MG/2 ML VIAL ONE (08:59)
[2016-11-26] MEDS: PANTOPRAZOLE 40 MG VIAL IV SCH ×2 (09:00→20:52)
--- NOTE | 2016-11-26 09:49 | Hospitalist Progress Note ---
Assessment and Plan (1) Nausea & vomiting Status: Acute Assessment and plan: cont zofran PRN and reglan to improve motility s/p gastric sleeve portion of the stomach dilation today started on clear liquid diet will advance to full diet as tolerated appreciate GI assistance Current Visit: Yes (2) Abdominal pain Status: Acute Assessment and plan: abd pain is stable CT abd- fat stranding around pancreas, amylase, lipase- are not elevated Current Visit: Yes (3) Ileus Status: Acute Assessment and plan: BS hypoactive, will start on clear liquids no BM since yesterday will dc levaquin, received 3 doses no ileus on CT afebrile, WBC- not elevated Current Visit: Yes (4) Hemorrhagic cystitis Status: Acute Assessment and plan: resolved, repeated UA only with 7 RBCs HH stable hematuria resolved f/u with [facility] as oupt for h/o hemorrhagic cystitis Current Visit: Yes Hospitalist: Subjective Interval history: 41 yo WF s/p gastric surgery on 10/31/16 in [facility] to ER c/o nausea, vomiting and and scamps since surgery. She was seeing by her surgeon 1 week ago and had upper GI that revealed esophageal and gastric spasms according to the pt. She was prescribed reglan, nexium and carafate. He symptoms did not improve so she presented to ER. C/o fever and chills also. She was admitted with dehydration and ileus and started on levaquin IV. CT abd - nonspecific fat stranding attached to the pancreas. Today; pt is somnolent, s/p EGD this am. EGD- mild narrowing inside gastric sleeve portion of stomach, s/p dilation w/o evidence of disruption or bleeding. Linear gastritis and erosive esophagitis. Pt was placed on liquid diet. Exam - Constitutional Vitals: Period Temp Pulse Resp BP Sys/Plaza Pulse Ox Last 24 Hr 97.8 F-98.6 F 18-84 18-20 94-118/45-71 96-99 General appearance: over weight, morbidly obese - Head Head exam: Present: normal inspection, normocephalic, atraumatic - Eye Eye exam: Present: EOMI Pupils: Present: ALONZO - ENT ENT exam: Present: normal exam - Neck Neck exam: Present: normal inspection - Respiratory Respiratory exam: Present: clear to auscultation bilaterally - Cardiovascular Cardiovascular exam: Present: regular rate and rhythm - GI/Abdominal GI/Abdominal exam: Present: normal bowel sounds, soft - Extremities Exam Extremities exam: Present: normal inspection - Neurological Exam Neurological exam: Present: other (somnolent , s/p sedation for EGD) - Psychiatric Psychiatric exam: Present: other (somnolent ) - Skin Skin exam: Present: normal color, warm Results - Labs CBC & BMP: 11/26/16 05:56 11/26/16 06:00 Quality Measures - Stroke Symptom Onset Unknown: No
[2016-11-26] MEDS: LEVOFLOXACIN INJ 500 MG in PREMIX 1 EACH IV SCH (11:00)
[2016-11-27] MEDS: SODIUM CHLORIDE 0.45% 1,000 ML IV SCH ×3 (00:10→08:36)
[2016-11-27] MEDS: METOCLOPRAMIDE 10 MG/2 ML VIAL IV SCH ×3 (00:11→12:22)
[2016-11-27 06:24] LABS: Calcium 8.5 MG/DL (8.5-10.1); Osmolality,Calculated 291.1 MOS/KG (273-304); Potassium 3.4 MMOL/L (3.5-5.1)
[2016-11-27] MEDS: PANTOPRAZOLE 40 MG VIAL IV SCH (08:36)
--- NOTE | 2016-11-27 11:08 | Discharge Summary ---
<Mellisa Johnson - Last Filed: 11/27/16 11:02> Hospital Course - Hospital Course Hospital Course: Ms. Viera was admitted on 11/24 with hemorrhagic cystits, abdominal pain, and acute ileus. She is about 1 month post gastric sleeve and has a hx of fibromyalgia. She has been having significant nausea and vomiting since her sleeve procedure. She was continued on Zofran as needed for this and GI was consulted. CT abdomen showed fat stranding around pancreas. Amylase/lipase were checked and resulted normal. GI saw on 11/[address] for issues [address] op[address] Dr[address] Costa felt that it was very likely that she had an esophageal stricture of pill esophagitis that was contributing to her nausea and vomiting. She has been on Protonix 40 mg PO BID since her surgery. Ms. Viera was taken to the scope lab on 11/26 for an EGD with biopsy and dilation. Her EGD yielded "mild narrowing inside the gastric sleeve portion of the stomach s/p dilation to 54 [place] by CRE dilator. This could help with her tolerance of liquids. Gastritis and esophagitis are also noted. Her bowel have begun to move again and she is now able to tolerate liquids. She will be discharged home today on appropriate medications and follow up. - Time spent with patient Time with patient DS: Greater than 30 minutes (due to plan, doc and med rec.) Diagnosis - Discharge Diagnosis (1) Hemorrhagic cystitis Status: Acute (2) Gastritis Status: Acute (3) Abdominal pain Status: Acute (4) GI complications of surgery Status: Acute (5) Ileus Status: Acute Discharge Plan - Discharge Data Disposition: Disch To Home/Self Care - Discharge Medications Continue Morphine ER Tab [Ms Contin] 15 mg PO BEDTIME Esomeprazole Magnesium [Nexium] 40 mg PO BID Levothyroxine Tab [Synthroid Tab] 75 mcg PO DAILY Escitalopram [Lexapro] 10 mg PO DAILY Cyanocobalamin (Vitamin B-12) [Nascobal] 1 each NS Q7DAY Oxycodone HCl/Acetaminophen [Percocet 10-325 mg Tablet] 1 each PO BEDTIME Metoclopramide Liquid [Reglan Liquid] 5 mg PO ACHS Discontinued Sucralfate Liquid [Carafate Liquid] 1 gm PO ACHS - Follow Up or Referral - Forms/Instructions Exam - Constitutional Vitals: Period Temp Pulse Resp BP Sys/Plaza Pulse Ox Last 24 Hr 98.3 F-98.6 F 72-95 18-20 94-156/52-75 95-98 Discharge Results Labs on day of discharge: Labs from last 24 hours 11/27/16 05:03 Sodium 149 H Potassium 3.4 L Chloride 112 H Carbon Dioxide 25 Anion Gap 15.4 H BUN 3 L Creatinine 0.80 GFR Calculation 115 BUN/Creatinine Ratio 3.00 L Glucose 82 Calculated Osmolality 291.1 Calcium 8.5 DS: Provider Date of admission: 11/24/16 02:07 Primary care physician: . No PCP Attending physician on admission: Shiv Bird MD Consults: 11/25/16 11:03 Consult to Physician [CONS] Routine Comment: s/p gastric sleeve surgery on 10-31: N/V abd pain Consulting Provider: Carlos Costa Person Notified: AARON Date Notified: 11/25/16 Time Notified: 11:29 11/25/16 16:42 Consult to Anesthesiology [CONS] Routine Consulting Provider: Reason for Anesthesiology: Pre-op Clearance Discharging clinician: Mellisa Johnson NP Expected date of discharge: 11/27/16 <Rolanda Curtis - Last Filed: 11/27/16 12:18> Discharge Plan - Discharge Data Condition at Discharge: Stable Discharge Diet: advance to your usual diet Activity: resume usual activities as tolerated Hygiene: no restrictions Contact your physician if you experience:: fever over 101, Nausea/Vomiting - Forms/Instructions Additional Discharge Instructions: follow up with PCP in 5-7 days Exam - Constitutional General appearance: no acute distress - Head Head exam: Present: normocephalic, atraumatic - Eye Eye exam: Present: EOMI Pupils: Present: ALONZO - Neck Neck exam: Present: normal inspection - Respiratory Respiratory exam: Present: clear to auscultation bilaterally - Cardiovascular Cardiovascular exam: Present: regular rate and rhythm - GI/Abdominal GI/Abdominal exam: Present: normal bowel sounds, soft - Extremities Exam Extremities exam: Present: full ROM - Neurological Exam Neurological exam: Present: alert, oriented X3, CN II-XII intact - Psychiatric Psychiatric exam: Present: normal affect, normal mood - Skin Skin exam: Present: warm, intact
[2016-11-27 11:53] VITALS: BP 156/75
--- NOTE | 2016-11-27 12:12 | Gastrointestinal Progress Note ---
Assessment and Plan (1) GI complications of surgery Status: Acute Assessment and plan: I suspect someone strongly that this patient has a esophageal stricture or pill esophagitis that is making her nauseated to the point where she is throwing up basically anything thicker than clear liquids. This is interesting as she has been on Protonix 40 mg twice daily since she was discharged from the hospital. She may in fact be vomiting up the medication and therefore unable to utilize it. We will switch her over to IV Protonix and see if this works better for her in addition to using IV promotility agents to help move the acid stomach quicker. She will need to be off of narcotics in order to give her bowels the best chance at recovery. Agree with aggressive hydration and coverage for her underlying hemorrhagic cystitis. If a stricturing focus can be found during endoscopy tomorrow we'll likely use balloon dilation to help open this area. She is 3 weeks post surgery and should be able to tolerate gentle dilation. Risks and benefits of the above procedure were described to the patient and her together these include but are not limited to: Bleeding, infection, perforation, cardiac and pulmonary compromise as well as potential peritonitis. 11/26/16-- the patient did well with upper endoscopy and dilation, findings were as follows: Mild narrowing inside the gastric sleeve portion of the stomach status post dilation to 54 [place]/18 mm by CRE dilator without evidence of disruption of some bleeding noted, we will see if this helps with the patient's full liquid tolerance. Linear gastritis noted and some LA class B erosive esophagitis seen, small hiatal hernia was also seen. He had some linear gastritis which was also biopsied. If she does adequately today with the full liquid intake we might consider advancing her diet tomorrow. 11/27/16--the patient did well with her full liquid diet. She is experiencing no major problems post-dilation and is not having any tardive dyskinesia side effects from the Reglan. In my opinion she can be discharged at this time. She can follow-up with me as needed in the future if she develops further dysphagia. She will likely need follow-up with her surgeon at some point as well. I would not continue the Carafate as an outpatient (she needs to continue on Prevacid solutabs 30 mg twice daily as well as her Reglan 5-10 mL of the elixir before every meal and daily at bedtime for the present time). I can repeat dilation as needed in the future if her surgeon feels this is going to be helpful. She can follow-up with me in the office as needed as well. Current Visit: Yes (2) Abnormal computed tomography of gastrointestinal tract Status: Acute Assessment and plan: Patient has fat stranding around the pancreas with an amylase and lipase of 36 and 251 both of which are within normal limits. I don't suspect that this is a pancreatitis issue more likely an obstructive issue caused by stricturing or severe esophagitis with nausea and vomiting. I have started the patient on IV Reglan as well as IV Protonix to ensure that she will be getting these medications, instead of throwing them up. Further recommendations post upper endoscopy tomorrow. 11/26/16-- observation, if the patient's symptoms are better we will not recheck these lab results. Current Visit: Yes (3) Nausea & vomiting Status: Acute Assessment and plan: See above. The patient is written for an Reglan which should be her main motility agent as well as Zofran and Phenergan if she needs it. Bear in mind there is a potential interaction between Phenergan and Reglan, and so this combination should be used last, to avoid serotonin syndrome and other interactions. Aggressive hydration should help replete her electrolytes and will be checking these during her hospitalization. Her BUN/creatinine actually looks fairly good considering the vomiting she is describing. 11/26/16--observation post dilation with advance in diet to a full liquid diet. 11/27/16--patient is now taking a full liquid diet and he is thinking about advancing her diet even further now that she has been dilated and has been treated with IV Reglan and Protonix. Prescription for Prevacid solutabs and Reglan written. Patient is advised to follow-up with me in the future as needed. Current Visit: Yes Gastroenterology - PN: Subj Interval history: She is doing much better at this time on the IV Reglan and IV Protonix, status post dilation of the gastric sleeve with CRE balloon dilator to 18 mm/54 [place]. We discussed the anatomy that she has to this time and the fact that the above nausea and vomiting may recur. She will be discarding the Carafate but continuing on the Reglan in elixir form and Prevacid solutabs 30 mg twice a day-- these were dissolved in her mouth and she'll be able to get full benefit from them and decrease her pill intake by 1 per day Exam (Progress Note) - Constitutional Vitals: Period Temp Pulse Resp BP Sys/Plaza Pulse Ox Last 24 Hr 98.3 F-98.6 F 72-95 18-20 94-156/52-75 95-98 General appearance: no acute distress - Eye Eye exam: Present: EOMI Pupils: Present: ALONZO - Respiratory Respiratory exam: Present: clear to auscultation bilaterally. Absent: rales, rhonchi, wheezes - Cardiovascular Cardiovascular exam: Present: regular rate and rhythm - GI/Abdominal GI/Abdominal exam: Present: normal bowel sounds, tenderness (minimal tenderness over the epigastrium), soft. Absent: guarding, rebound - Neurological Exam Neurological exam: Present: alert, oriented X3 - Psychiatric Psychiatric exam: Present: normal affect, normal mood - Skin Skin exam: Present: warm Results - Labs CBC & BMP: 11/26/16 05:56 11/27/16 05:03
== END 2016-11-27 12:44 | disposition home or self-care (01) | DRG 394 ==
LOC: N.EDINP 21:49 → N.ED 21:49 → SUATTDRO 11-24 02:07 → OBSVTOIN 11-24 02:07 → N.2E 11-24 02:39
PROVIDERS: ADMIT Family Medicine; ATTEND Internal Medicine